=== PATIENT | male | born 1940 | race Caucasian/White ===

== ENCOUNTER → 2018-02-20 | Outpatient (CLI) | payer OTHER ==
[~2018-02-20] MED LIST: ADULT LOW DOSE81 M1 PO; ASPIR 8181 M1 PO; LIPITOR10 MG PO; LIPITOR20 MG PO; LISINOPRIL20 MG PO
== END | disposition home or self-care (01) ==
LOC: NUC 09:41
DX: M19.012 Primary osteoarthritis, left shoulder (principal); M19.011 Primary osteoarthritis, right shoulder; M19.021 Primary osteoarthritis, right elbow; M19.042 Primary osteoarthritis, left hand; M19.041 Primary osteoarthritis, right hand; M17.11 Unilateral primary osteoarthritis, right knee
CPT/HCPCS: 78306; A9503